=== PATIENT | male | born 1945 | race American Indian/Alaskan Native ===

== ENCOUNTER 2017-01-14 08:17 | Day surgery (SDC) | payer MEDICARE ==
[~2017-01-14 08:17] MED LIST: XYLOCAINE MPF 2% ONE
[2017-01-14] MEDS ORDERED: NACL 0.9% 1000 ML 1,000 ML IV SCH (09:00)
[2017-01-14] MEDS ORDERED: DIPRIVAN 10 MG/ML IV ONE ×2 (10:17)
--- NOTE | 2017-01-14 11:15 | Short Stay Summary ---
Short Stay Documentation Date of service: 01/14/17 Narrative H&P: The patient presents for his first screening colonoscopy - History Past Medical History: hypertension, hyperlipidemia Past Surgical History: No surgical history Social history: lives with family, no smoking, no alcohol abuse - Allergies and Medications Current Medications: Allergies No Known Allergies Allergy (Verified 01/14/17 08:31) Home Medications Medication Instructions Recorded Confirmed Last Taken Type Aspirin [Adult Low Dose Aspirin EC] 81 mg PO DAILY 01/13/17 01/14/17 01/14/17 History Lisinopril/Hydrochlorothiazide 10 - 12.5 mg PO DAILY 01/13/17 01/14/17 01/14/17 History Simvastatin [Zocor TAB] 20 mg PO QHS 01/13/17 01/14/17 01/13/17 History Active Medications Sodium Chloride (Nacl 0.9% 1000 Ml) 1,000 mls @ 50 mls/hr IV DIRECT TARAN Last Admin: 01/14/17 09:13 Dose: 50 mls/hr - Physical exam General appearance: no acute distress, well-nourished Integumentary: no rash, no growths, no abnormal pigmentation HEENT: Atraumatic, PERRLA, EOMI, Mucous membr. moist/pink Lungs: Clear to auscultation, Normal air movement Breasts: deferred Heart: Regular rate, Normal S1, Normal S2, No murmurs Gastrointestinal: normoactive bowel sounds, no masses, no organomegaly Male Genitourinary: deferred Rectal Exam: normal rectal tone, no mass Extremities: no ischemia, pulses intact, pulses symmetrical, No edema, normal temperature, Full ROM Neurological: Normal gait, Normal speech, Strength at 5/5 X4 ext, Normal tone, Sensation intact, Cranial nerves 3-12 NL - Brief post op/procedure progress note Date of procedure: 01/14/17 Findings: see intake form Estimated blood loss: none Pathology: list (sigmoid and rectal polyps) Specimen disposition: to lab Condition: stable - Disposition Condition at discharge: Good Disposition: DISCHARGED TO HOME OR SELFCARE - Discharge Diagnoses (1) Colon cancer screening Status: Acute Short Stay Discharge Plan Activity: other (no driving until tomorrow.) Weight Bearing Status: Full Weight Bearing Additional Instructions: Post Sedation D/C Instructions When you return home you may resume your regular diet unless otherwise directed. -Go directly home from the hospital and rest quietly. You may resume normal activities tomorrow. -Do NOT drive, return to work, operate any machinery or make any important personal or business decisions today. -Do NOT drink any alcohol or take nerve or sleeping drugs. They add to the effects of the medicine still present in your body. Follow up with doctor for treatment plan Follow up with: ANA LUISA SOTO MD [Primary Care Provider] - 7 Days
--- NOTE | 2017-01-14 11:17 | Operative Report ---
Operative Report Operative Report: Date of procedure: 01/14/2017 Preprocedure diagnosis: Colon cancer screening, no prior studies. Post procedure diagnosis: Pedunculated polyps of the sigmoid colon and rectum. Procedure: Colonoscopy to the cecum with snare polypectomies Endoscopist: Dr. Arnold Anesthesia: Monitored anesthesia care per anesthesia department Estimated blood loss: 0 Medications: Monitored anesthesia care. See separate report by anesthesia for details. After careful discussion of the nature and purpose of the procedure as well as details of the technique risks benefits and alternatives the patient gave consent. Please see recent history and physical from the office. The patient was placed in the left lateral decubitus position and medicated per anesthesia. A rectal exam was performed sphincter tone was normal there were no masses palpable. The Drivablen 570 scope was passed transanally and advanced under continuous direct vision without difficulty to the cecum. The colon was well prepared. The cecum was normal. The ascending colon was normal and on forward and retroflexed views. The transverse colon and descending colon were normal. There was an 8 mm pedunculated polyp in the distal sigmoid colon. The polyp was removed with snare electrocautery without difficulty. In the mid rectum there was a 1.5 cm pedunculated polyp on a short stalk. The polyp was removed with snare electrocautery without difficulty. The rectum otherwise was normal on forward and retroflexed views. Both polyps were retrieved. The procedure was well-tolerated overall and the patient was observed in recovery. Conclusions: 8 mm pedunculated polyp in the distal descending colon and 1.5 cm pedunculated polyp in the rectum. Plan: Await pathology. Repeat colonoscopy in 3 years. Signed electronically: Konstantin Arnold M.D.
[2017-01-14 11:27] VITALS: BP 127/73
--- NOTE | 2017-01-14 12:42 | Anesthesia Day of Surgery ---
Anesthesia Day of Surgery - Day of Surgery Patient Examined: Yes Patient H&P Reviewed: Yes Patient is NPO: Yes
--- NOTE | 2017-01-14 12:43 | Anesthesia Consultation ---
Anesthesia Consult and Med Hx Date of service: 01/14/17 - Airway Anesthetic Teeth Evaluation: Dentures - Pulmonary Exam CTA: Yes - Cardiac Exam Cardiac Exam: RRR - Pre-Operative Health Status ASA Pre-Surgery Classification: ASA2 Proposed Anesthetic Plan: MAC - Pulmonary Hx Smoking: Yes (1 1/2 ppd) - Cardiovascular System Hx Hypertension: Yes - Additional Comments Anesthesia Medical History Comments: NAC
--- NOTE | 2017-01-14 13:55 | Post Anesthesia Evaluation ---
- Post Anesthesia Evaluation Patient Participated: Yes Airway Patent: Yes Stable Respiratory Function: Yes Nausea/Vomiting: No Temp > 96.8F: Yes Pain Manageable: Yes Adequeate Hydration: Yes Anesthesia Complications: No
== END 2017-01-14 08:18 | disposition home or self-care (01) ==
LOC: GIO 08:17
PROVIDERS: ATTEND Internal Medicine Gastroenterology
DX: Z12.11 Encounter for screening for malignant neoplasm of colon (principal); D12.8 Benign neoplasm of rectum; D12.5 Benign neoplasm of sigmoid colon; I10 Essential (primary) hypertension; E78.5 Hyperlipidemia, unspecified; F17.210 Nicotine dependence, cigarettes, uncomplicated; Z79.82 Long term (current) use of aspirin; Z79.899 Other long term (current) drug therapy
CPT/HCPCS: 45385; 88305; J2704; J7030